=== PATIENT | male | born 1965 | race Caucasian/White ===

== ENCOUNTER 2022-04-24 11:16 | Inpatient (IN) ==
--- NOTE | 2022-04-20 13:38 | Anesthesiology Consultation ---
Date of Service April 20, 2022 Assessment & Plan (1) Encounter for pre-operative examination: COVID screening: Per assessment on 04/20: No known COVID-19 positive contacts or current COVID-19 related symptoms. Travel screen negative. At surgeon discretion if preop Covid testing being done. Chart Review Chart Review: Acceptable Risk for Surgery and Patient seen in Pre Admission Testing Teaching & Discussion Pre-Anesthesia Teaching/Discussion Notes: Instructed NPO after midnight before surgery,except medications with 15 cc of water. Medication instructions provided according to the PAT guidelines. History Surgery Operation Date: 04/24/22 12:25 Proposed Procedures p L3-S1 Decompression Fusion, Spinal Cord Monitoring - Teddy Catalan, Height/Weight Height: 5 ft 8 in Weight: 99.79 kg Allergies Allergy/AdvReac Type Severity Reaction Status Date / Time No Known Allergies Allergy Verified 04/20/22 08:32 Medications Home Medications Medication Instructions Recorded Confirmed Last Taken atorvastatin 20 mg tablet (Lipitor) 20 mg PO HS 04/20/22 04/20/22 Unknown glucosamine-chondroitin 250 mg-200 2 tab PO TID 04/20/22 04/20/22 Unknown mg tablet (Osteo Bi-Flex) ibuprofen 800 mg tablet 800 mg PO TID PRN Pain 04/20/22 04/20/22 Unknown irbesartan 150 1 tab PO QAM 04/20/22 04/20/22 Unknown mg-hydrochlorothiazide 12.5 mg tablet iron 40 mg capsule 40 mg PO BID 04/20/22 04/20/22 Unknown multivitamin 1 tab PO QAM 04/20/22 04/20/22 Unknown omega-3 fatty acids 1,000 mg PO QAM 04/20/22 04/20/22 Unknown Past Medical History Medical History History of COVID-19 08/2019, loss of taste/smell, fatigue > resolved Hyperlipidemia Hypertension Past Family History Family History Other No family history of adverse response to anesthesia Past Surgical History Surgical History Hx of bilateral inguinal hernia repair Hx of colonoscopy Hx of umbilical hernia repair Social History Smoking Status: Former smoker tobacco type: cigarettes Do You Dip or Chew Tobacco: No Smoking End Date: QUIT >25 YRS Hx Alcohol Use: Yes Alcohol type: beer alcohol intake frequency: 3 or more drinks per day Hx Substance Use: No substance use type: does not use Review of Systems Patient denies chest pain, shortness of breath, dyspnea on exertion, fever, chills, cough, wheezing, palpitations. Physical Exam Vital Signs VITALS BP P TEMP SP02 RESP PHYSICAL Full cervical extension range of motion. Full TMJ range of motion. TMD __ finger breaths Mallampati Score ___ Dentition: intact Lungs: clear throughout to auscultation Cardiac: regular rate and rhythm, no murmurs noted Spine: normal Carotid arteries: negative bruit Extremities: no edema Testing Laboratory Results 04/14/22 WBC 8.4 H/H 14.1/43.7 PLATELETS 238 SODIUM 138 POTASSIUM 4.5 CHLORIDE 105 CO2 26.0 BUN 25 CREATININE 0.9 GLUCOSE 105 PT 10.7 PTT 29.4 INR 0.9 UA + blood/ketones, negative nitrite/leuk est/+ bact (no growth on culture) Electrocardiogram Date: 04/14/22 SR at 82bpm. Consider LAE. PRWP. Cannot r/o old anterior infarct. Chest X-Ray Date: 04/14/22 Findings: + NAD
[~2022-04-24 11:16] MED LIST: ACETAMINOPHEN 500 MG TAB PO SCH; CeleBREX 200 MG CAP PO SCH; GABAPENTIN 600 MG DOSE PO SCH; HYDROmorphone INJ 2 MG/ML SYR/VIAL ONE; LR 15ML/HR IV SCH; MIDAZOLAM HCL 1 MG/ML 2ML VIAL ONE; ceFAZolin 2000MG 2,000 MG/15 ML SYR IV SCH
[2022-04-24] MEDS ORDERED: GLYCOPYRROLATE 0.2 MG/ML VIAL ONE (11:18)
[2022-04-24] MEDS ORDERED: ONDANSETRON INJ 2 MG/ML 2 ML VIAL ONE (11:18)
[2022-04-24] MEDS ORDERED: DEXAMETHASONE SOD INJ 4 MG/ML VIAL ONE (11:18)
[2022-04-24] MEDS ORDERED: PROPOFOL IV EMULSION 10 MG/ML 20 ML VIAL IV ONE (11:18)
[2022-04-24] MEDS ORDERED: LIDOCAINE 2% MPF LOCAL 5 ML VIAL INFIL ONE (11:18)
[2022-04-24] MEDS ORDERED: ROCURONIUM BROMIDE 10 MG/ML 5 ML VIAL IV ONE ×2 (11:18→13:17)
--- NOTE | 2022-04-24 11:45 | History & Physical Bridge Note ---
Date of Service April 24, 2022 History & Physical Bridge Note I have examined the patient, reviewed the History & Physical and in the interval since the performance of the History & Physical I have noted the following changes of clinical significance: no changes noted
--- NOTE | 2022-04-24 11:46 | History & Physical Report ---
Date of Service April 24, 2022 Assessment & Plan (1) Neurogenic claudication due to lumbar spinal stenosis: History of Present Illness Chief Complaint: Back and bilateral leg pain Primary Care Provider: NO PCP This is a 57-year-old male who presents with chronic persistent back and bilateral leg pain. Failing extensive course of nonoperative care is here for surgical invention. Allergies Allergy/AdvReac Type Severity Reaction Status Date / Time No Known Allergies Allergy Verified 04/24/22 11:33 Home Medications Medication Instructions Recorded Confirmed Type atorvastatin 20 mg tablet (Lipitor) 20 mg PO HS 04/20/22 04/24/22 History glucosamine-chondroitin 250 mg-200 2 tab PO TID 04/20/22 04/24/22 History mg tablet (Osteo Bi-Flex) ibuprofen 800 mg tablet 800 mg PO TID PRN Pain 04/20/22 04/24/22 History irbesartan 150 1 tab PO QAM 04/20/22 04/24/22 History mg-hydrochlorothiazide 12.5 mg tablet iron 40 mg capsule 40 mg PO BID 04/20/22 04/24/22 History multivitamin 1 tab PO QAM 04/20/22 04/24/22 History omega-3 fatty acids 1,000 mg PO QAM 04/20/22 04/24/22 History Past Med/Surg History Medical History History of COVID-19 08/2019, loss of taste/smell, fatigue > resolved Hyperlipidemia Hypertension Surgical History Hx of bilateral inguinal hernia repair Hx of colonoscopy Hx of umbilical hernia repair Family History Other No family history of adverse response to anesthesia Social History Smoking Status: Former smoker Smoking End Date: QUIT >25 YRS; Second Hand Exposure: No; Do You Dip or Chew Tobacco: No; Tobacco Cessation Education Requested by Patient: No Hx Alcohol Use: Yes Alcohol type: beer Hx Substance Use: No Preferred Language: Nepali Communication Ability: Effective Payroll Administrative Assistant Required: No Beliefs That Will Affect Care: None Current Living Situation: Spouse Other Information That Helps Us Care for You: No Feels Safe at Home: Yes Safety Concerns: Feels Safe At This Time Assistive Devices: Glasses Physical Exam Physical Exam: Patient is alert and oriented Heart regular rhythm Lungs clear
[2022-04-24] MEDS ORDERED: SUGAMMADEX SODIUM 200 MG/2 ML VIAL IV ONE (11:54)
[2022-04-24] MEDS ORDERED: ceFAZolin 330 MG/ML 1 GM VIAL ONE (12:04)
[2022-04-24] MEDS ORDERED: BUPIVACAINE/EPINEPHRINE 0.25% 1:200,000 30 ML VIAL ONE (12:04)
[2022-04-24] MEDS ORDERED: ONDANSETRON INJ 2 MG/ML 2 ML VIAL IV PRN ×2 (12:29→16:39)
[2022-04-24] MEDS ORDERED: PROMETHAZINE HCL 12.5 MG in SODIUM CHLORIDE 0.9% 50 ML IV PRN ×2 (12:29→16:39)
[2022-04-24] MEDS ORDERED: HYDROmorphone INJ 1 MG/ML SYRINGE IV PRN ×2 (12:29→16:39)
[2022-04-24] MEDS ORDERED: LABETALOL HCL IV 5 MG/ML 20ML IV PRN (12:29)
[2022-04-24] MEDS ORDERED: ATROPINE SULFATE 0.1 MG/ML 10ML SYR IV PRN (12:29)
[2022-04-24] MEDS ORDERED: ePHEDrine sulfate 50 MG/ML AMP IV PRN (12:29)
[2022-04-24] MEDS ORDERED: SUCCINYLCHOLINE CHLORIDE 20 MG/ML 10 ML VIAL IV ONE (12:38)
[2022-04-24] MEDS ORDERED: FLOSEAL HEMOSTATIC MATRIX 10ML TOP ONE (13:12)
[2022-04-24] MEDS ORDERED: PHENYLEPHRINE 100MCG/ML 5ML SYR ONE (13:34)
--- NOTE | 2022-04-24 15:02 | Operative Report ---
Post Operative Report Pre & Post Diagnosis Operation Date: 04/24/22 12:45 Pre-Op Diagnosis: Neurogenic Claudication due to Lumbar Spinal Stenosis L3-S1 Post-Op Diagnosis: Neurogenic Claudication due to Lumbar Spinal Stenosis L3-S1 I identified the patient and participated in the time-out.: Yes Procedure Operation Date: 04/24/22 12:45 Actual Procedures #1 lumbar decompression bilateral medial facetectomies and foraminotomies L1-L3, L3-L4, L4-L5 and L5-S1. #2 posterior spinal fusion L3-S1. #3 placement p osterior segmental instrumentation L3-S1. #4 interbody fusion L3-L4, L4-5 and L5-S1. #5 placement of Spira 13 x 26 mm at L3-L4, 15 x 26 mm L4-5 and 15 x 26 mm of L5-S1. #6 placement locally harvested morselized autograft in the posterior gutters. #7 placement of I factor model V toss in interbody space and posterior lateral gutters. Surgeon Teddy Catalan, DO Bit Gatherer Cassidy Pavon Estimated Blood Loss 350 Findings See Below The patient is 5 foot 8 inches tall weighing over 97 kg with a BMI in excess of 32. Patient's body habitus did contribute to significant technical difficulty required deepest retractors longer instruments in order to perform his procedure. This at least 50% increased operative time. Specimens None Indications This is a 57-year-old male who presents to the emergency diagnosis after failing course of nonoperative care is here for surgical invention. Description of Procedure Patient was met with identified informed consent obtained. Patient was then taken to the operative suite underwent ablation placed in a prone position on the Sanjeev table atop the Caden frame. All bony prominences well-padded eyes inspected to ensure no external pressure placed upon them. This point lumbar spine was prepped and draped in a sterile fashion. Sharp dissection with the assistance of Bovie cautery was formed down to and exposing the lamina transverse processes of L3-L4-L5 and sacral ala bilaterally. From a caudal cephalad fashion complete laminectomy of L5 L4 L3 impression laminectomy of L2 was performed including bilateral medial facetectomies and foraminotomies addressing severe spinal stenosis. Pedicle screws then placed in L3-L4-L5 and S1 levels bilaterally with assistance of fluoroscopy the proper sized marysol placed. By way of a transforaminal approach on the right complete discectomy of L5-S1 was performed endplates curetted to subcortically bone and a 15 x 26 mm spiral cage with I factor tapped in position. Then proceeded L4-L5 and again by way the transforaminal portion right complete discectomy performed endplates curetted to subcortical bleeding bone and again a 15 x 26 mm spiral cage with I factor tapped in position. Lastly proceeded L3-L4 and by way of a transfemoral approach and right complete discectomy performed endplates curetted to subcortically bone and a 13 x 26 mm spiral cage filled with I factor tapped in position. The rods then locked into final position bilaterally. The transverse processes of L3 L4-5 and sacral ala burred to subcortical bleeding bone. I factor combined with V toss and locally harvested morselized autograft was placed in the posterior gutters. 15 round MECCA drain inserted. The incision was then closed with 1 Vicryl in the fascia 2-0 Vicryl subcutaneously and 4 Monocryl for final skin closure. Steri-Strip sterile dressing placed. Patient waken taken to PACU in stable condition. Please note spinal cord monitoring was utilized at the procedure no changes noted. Lastly Cassidy Pavon was present at the entire surgery and while the patient positioning complex portions of the surgery and final skin closure. I attest to the content of the Intraoperative Record and any orders documented therein. Any exceptions are noted below.
--- NOTE | 2022-04-24 15:11 | Fluoroscopy Report ---
FL lumbar spine 2-3V CLINICAL HISTORY: L3-S1 DECOMPRESSION AND FUSION COMPARISON STUDY: None. FLUOROSCOPY TIME: 37 seconds. FLUOROSCOPIC IMAGES: 3 FINDINGS: Fluoroscopy was provided during L3-L4, L4-L5 and L5-S1 discectomies with interbody spacer p lacement. Posterior decompression is noted. There are bilateral pedicle screws at the L3, L4, L5 and S1 levels with interconnecting rods. Hardware is intact. There are no unexpected radiopaque foreign b odies. IMPRESSION: Fluoroscopy provided during L3-S1 decompression and fusion, as above. ACT 112: Negative or not required by law. Electronically signed by: Daniel Thomas M.D. 04/24/2022 3:09 PM
[2022-04-24] MEDS: fentaNYL citrate 100 MCG/2 ML VIAL IV PRN ×4 (15:24→15:39)
--- NOTE | 2022-04-24 16:06 | Anesthesiology Progress Note ---
Date of Service April 24, 2022 Anesthesia Post Procedure Vital Signs Vital Signs: Temp Pulse Pulse Resp BP BP Pulse Ox 04/24/22 16:00 102 H 13 116/66 99 04/24/22 15:30 102 H 12 140/90 100 04/24/22 15:50 106 H 19 117/73 100 04/24/22 15:40 109 H 28 H 120/90 100 04/24/22 15:20 101 H 18 132/87 100 04/24/22 15:13 36.4 C L 95 H 13 115/91 100 04/24/22 11:38 36.7 C 96 H 16 144/105 H 97 O2 Del Method O2 Flow Rate 04/24/22 16:00 Nasal Cannula 3 04/24/22 15:30 Oxymask 10 04/24/22 15:50 Nasal Cannula 3 04/24/22 15:40 Nasal Cannula 3 04/24/22 15:20 Oxymask 10 04/24/22 15:13 Oxymask 10 04/24/22 11:38 Room Air Pain Intensity Right Leg: Pain Intensity: 5 Back: Pain Intensity: 6 Transfer of Care Handoff Completed per policy Notes Mental Status: alert / awake / arousable Patient Amnestic to Procedure: Yes Nausea / Vomiting: adequately controlled Pain: adequately controlled Airway Patency, RR, SpO2: stable & adequate BP & HR: stable & adequate Hydration State: stable & adequate Anesthetic Complications: no major complications apparent
[2022-04-24] MEDS ORDERED: hydrOXYzine HCl 25 MG TAB PO PRN (16:39)
[2022-04-24] MEDS ORDERED: SOD PHOSPHATE/SOD BIPHOSPHATE ENEMA 132 ML BTL PR PRN (16:39)
[2022-04-24] MEDS ORDERED: METOCLOPRAMIDE HCL INJ 5 MG/ML 2 ML VIAL IV PRN (16:39)
[2022-04-24] MEDS ORDERED: MAGNESIUM HYDROXIDE SUSP 30 ML UDC PO PRN (16:39)
[2022-04-24] MEDS ORDERED: LORazepam 0.5 MG in SYRINGE 0 ML IV PRN (16:39)
[2022-04-24] MEDS ORDERED: ACETAMINOPHEN 500 MG TAB PO PRN (16:39)
[2022-04-24] MEDS ORDERED: ALUMINUM/MAGNESIUM SUSP 30 ML UDC PO PRN (16:39)
[2022-04-24] MEDS ORDERED: traMADol HCL 50 MG TABLET PO PRN (16:39)
[2022-04-24] MEDS ORDERED: HYDROmorphone INJ 0.5 MG/0.5 ML SYR IV PRN (16:39)
[2022-04-24] MEDS ORDERED: bisacodyL 10 MG SUPP PR PRN (16:39)
[2022-04-24] MEDS ORDERED: ONDANSETRON 4 MG OD TAB PO PRN (16:39)
[2022-04-24] MEDS ORDERED: ACETAMINOPHEN 1,000 MG/100 ML VIAL IV PRN (16:39)
[2022-04-24] MEDS ORDERED: FAMOTIDINE 20 MG TAB PO PRN (16:39)
[2022-04-24] MEDS ORDERED: diphenhydrAMINE Capsule 25 MG CAP PO PRN (16:39)
[2022-04-24] MEDS ORDERED: NALOXONE HCL 0.4 MG/1 ML VIAL/CARP IV PRN (16:39)
[2022-04-24] MEDS: LACTATED RINGER'S 1,000 ML IV SCH ×2 (16:51→23:29)
--- NOTE | 2022-04-24 17:19 | Hospitalist Consultation ---
Date of Consultation April 24, 2022 Assessment & Plan (1) Neurogenic claudication due to lumbar spinal stenosis: Raudel is a 57-year-old male with a past medical history of neurogenic claudication due to lumbar stenosis, hypertension, hyperlipidemia who presented for scheduled lumbar decompression and surgical intervention of spinal stenosis on 04/24/2022. We are consulted for postop medication management. Lumbar stenosis 04/24/2022 s/p #1 lumbar decompression bilateral medial facetectomies and foraminotomies L1-L3, L3-L4, L4-L5 and L5-S1. #2 posterior spinal fusion L3- S1. #3 placement posterior segmental instrumentation L3-S1. #4 interbody fusion L3-L4, L4-5 and L5-S1. #5 placement of Spira 13 x 26 mm at L3-L4, 15 x 26 mm L4-5 and 15 x 26 mm of L5-S1. #6 placement locally harvested morselized autograft in the posterior gutters. #7 placement of I factor model V toss in interbody space and posterior lateral gutters. - DVT prophylaxis, pain control, ambulation recommendations per primary team Mild tachycardia 350 cc of blood loss. Additional 500 cc supplemental fluid given postoperatively. Burning in His Right Thigh Positionally, No Radiating Symptoms down to the Foot. Sensation of Soft Touch Is Intact in Feet, Heel, Smith, and Thigh Bilaterally to Soft Touch without Asymmetry. Ankle Dorsiflexion/Plantarflexion Is Intact Bilaterally with 5/5 Strength. Cap Refill in the Hallux Is Brisk Bilaterally. Hypertension Hold irbesartan/hydrochlorothiazide day of procedure. May resume 04/25 if blood pressure normal or hypertensive and creatinine normal. If BP low or creatinine is elevated hold and then resume 04/26 Normotensive postoperatively BMP in a.m. Hyperlipidemia Continue atorvastatin 20 mg p.o. nightly Postoperative hypoxia On 2 L, suspect postoperative atelectasis Incentive spirometry, wean to SPO2 goal of greater than 90% COVID-negative History of Present Illness Attending Physician: Teddy Catalan, History of Present Illness Raudel is a 57-year-old male who presented for lumbar decompression due to neurogenic claudication from spinal stenosis. We are consulted for medical management. He is doing well postoperatively, with some thigh pain and burning increased preoperatively but no symptoms radiating down into his lower legs or heels. He denies fever, chills, sweats, lightheadedness, dizziness. Reports that he was resting comfortably, and would like to get some sleep but otherwise feels okay with no concerns other than his right thigh pain. Denies chest pain, chest pressure, lightheadedness, dizziness. Postoperatively blood pressure was slightly low, has improved with fluids supportive care. MECCA drain is in place draining sanguinous to serosanguineous fluid, drain is with greater than 150 cc at time of visit. Medical History: Reviewed Medications: Reviewed Surgical History: Reviewed Allergies: Reviewed Social History: Reviewed Code Status: Full code Allergies Allergy/AdvReac Type Severity Reaction Status Date / Time No Known Allergies Allergy Verified 04/24/22 11:33 Home Medications Medication Instructions Recorded Confirmed Type atorvastatin 20 mg tablet (Lipitor) 20 mg PO HS 04/20/22 04/24/22 History glucosamine-chondroitin 250 mg-200 2 tab PO TID 04/20/22 04/24/22 History mg tablet (Osteo Bi-Flex) ibuprofen 800 mg tablet 800 mg PO TID PRN Pain 04/20/22 04/24/22 History irbesartan 150 1 tab PO QAM 04/20/22 04/24/22 History mg-hydrochlorothiazide 12.5 mg tablet iron 40 mg capsule 40 mg PO BID 04/20/22 04/24/22 History multivitamin 1 tab PO QAM 04/20/22 04/24/22 History omega-3 fatty acids 1,000 mg PO QAM 04/20/22 04/24/22 History oxycodone 5 mg tablet 5 mg PO Q6H PRN pain, severe #30 04/25/22 Rx tabs tramadol 50 mg tablet 50 mg PO Q6H PRN pain, moderate 04/25/22 Rx #30 tabs Patient History Medical History History of COVID-19 08/2019, loss of taste/smell, fatigue > resolved Hyperlipidemia Hypertension Surgical History Hx of bilateral inguinal hernia repair Hx of colonoscopy Hx of umbilical hernia repair Family History Other No family history of adverse response to anesthesia Social History Smoking Status: Former smoker Smoking End Date: QUIT >25 YRS; Second Hand Exposure: No; Do You Dip or Chew Tobacco: No; Tobacco Cessation Education Requested by Patient: No Hx Alcohol Use: Yes Alcohol type: beer Hx Substance Use: No Preferred Language: Senegalese Communication Ability: Effective Transmission And Coordination Engineer Required: No Beliefs That Will Affect Care: None Current Living Situation: Spouse Other Information That Helps Us Care for You: No Feels Safe at Home: Yes Safety Concerns: Feels Safe At This Time Assistive Devices: Glasses Review of Systems Review of Systems: All systems reviewed & are unremarkable except as noted in Subjective Physical Exam Physical Exam: General: A&Ox3. NAD. Cooperative. HEENT: Atraumatic, normocephalic. Vision and hearing grossly intact Pulm: CTAB A&P. -wheezes, -rales, -rhonchi. Symmetrical chest rise. No increase in work of breathing. No respiratory distress. Cardiac: RRR, -mrg. Radial pulses intact and symmetrical. Abdominal: Nontender, nondistended, soft. BS present. Extremities: Endorses burning in His Right Thigh Positionally, No Radiating Symptoms down to the Foot. Sensation of Soft Touch Is Intact in Feet, Heel, Smith, and Thigh Bilaterally to Soft Touch without Asymmetry. Ankle Dorsiflexion/Plantarflexion Is Intact Bilaterally with 5/5 Strength. Cap Refill in the Hallux Is Brisk Bilaterally. Back: MECCA drain in place draining approximately 150 cc of sanguinous to serosanguineous material. No purulence. Results & Data Results & Data ([facility]) Vital Signs (Past 12 Hours) Vital Signs Temp Pulse Pulse Resp BP BP Pulse Ox 04/24/22 16:45 04/24/22 16:45 37.3 C 106 H 18 121/83 100 04/24/22 16:25 104 H 13 104/66 99 04/24/22 16:10 36.6 C 105 H 14 120/71 100 04/24/22 16:00 102 H 13 116/66 99 04/24/22 15:30 102 H 12 140/90 100 04/24/22 15:50 106 H 19 117/73 100 04/24/22 15:40 109 H 28 H 120/90 100 04/24/22 15:20 101 H 18 132/87 100 04/24/22 15:13 36.4 C L 95 H 13 115/91 100 04/24/22 11:38 36.7 C 96 H 16 144/105 H 97 O2 Del Method O2 Flow Rate 04/24/22 16:45 Nasal Cannula 2 04/24/22 16:45 Nasal Cannula 2 04/24/22 16:25 Nasal Cannula 2 04/24/22 16:10 Nasal Cannula 3 04/24/22 16:00 Nasal Cannula 3 04/24/22 15:30 Oxymask 10 04/24/22 15:50 Nasal Cannula 3 04/24/22 15:40 Nasal Cannula 3 04/24/22 15:20 Oxymask 10 04/24/22 15:13 Oxymask 10 04/24/22 11:38 Room Air PG Care Time/CCT Total # of Minutes Spent Total Time Spent with Patient: Total time spent is greater than 50% in coordination of care (as documented) at patient's floor/unit and/or counseling patient: Coding Level of Care Code 10355 Inpt Consult Level 4 Diagnoses Neurogenic claudication due to lumbar spinal stenosis M48.062
[2022-04-24] MEDS: ceFAZolin 2000MG 2,000 MG/15 ML SYR IV SCH (20:27)
[2022-04-24] MEDS: ATORVASTATIN 20 MG TAB PO SCH (20:28)
[2022-04-24] MEDS: FERROUS GLUCONATE 324 MG TAB PO SCH (20:28)
[2022-04-24] MEDS: DOCUSATE SODIUM/SENNA 50/8.6MG TAB PO SCH (20:28)
[2022-04-24] MEDS: oxyCODONE HCL IR 5 MG TAB (IMMEDIATE RELEASE) PO PRN (22:19)
[2022-04-25] MEDS: LACTATED RINGER'S 1,000 ML IV SCH (01:45)
[2022-04-25] MEDS: POLYETHYLENE (MIRALAX) 17 GM PACK PO SCH ×4 (05:39→21:10)
[2022-04-25] MEDS: ceFAZolin 2000MG 2,000 MG/15 ML SYR IV SCH (05:39)
[2022-04-25] MEDS: oxyCODONE HCL IR 5 MG TAB (IMMEDIATE RELEASE) PO PRN ×4 (05:42→21:07)
[2022-04-25] MEDS: hydroCHLOROthiazide 25 MG TAB PO SCH (08:31)
[2022-04-25] MEDS: FERROUS GLUCONATE 324 MG TAB PO SCH ×2 (08:31→21:06)
[2022-04-25] MEDS: LORazepam 0.5 MG TAB PO PRN (08:31)
[2022-04-25] MEDS: IRBESARTAN 150 MG TAB PO SCH (08:31)
[2022-04-25] MEDS: MULTIVITAMIN TAB PO SCH (08:31)
[2022-04-25] MEDS: dexAMETHasone 6 MG in SYRINGE 0 ML IV SCH (08:32)
[2022-04-25] MEDS: GABAPENTIN 300 MG CAP PO SCH ×3 (08:35→21:06)
[2022-04-25] MEDS ORDERED: NON-FORMULARY MEDICATION (Irbesartan-Hydrochlorothiazide 150-12.5 mg Tablet) PO SCH (09:00)
[2022-04-25 09:17] LABS: Basophils # (auto) 0.02 K/uL (0-0.2); Basophils % (auto) 0.1 %; Eosinophils # (auto) 0.01 K/uL (0-0.50); Eosinophils % (auto) 0.1 %; Hematocrit (blood only) 34.8 % (40.1-51.0); Hemoglobin 11.6 g/dl (14.0-18.0); Immature Granulocytes % (auto) 0.6 %; Lymphocytes # (auto) 1.19 K/uL (1.2-3.4); Lymphocytes % (auto) 6.6 %; Mean Corpuscular Hemoglobin 30.9 pg (25.0-34.0); Mean Corpuscular Hgb Conc 33.3 g/dL (32.0-36.0); Mean Corpuscular Volume 92.8 fL (80.0-100.0); Monocytes # (auto) 1.53 K/uL (0.24-0.82); Monocytes % (auto) 8.5 %; Neutrophils # (auto) 15.06 K/uL (1.4-6.5); Neutrophils % (auto) 84.1 %; Platelet Count 257 K/uL (130-400); RDW Coefficient of Variation 12.7 % (11.5-14.5); RDW Standard Deviation 43.4 fL (36.4-46.3); Red Blood Count 3.75 M/uL (4.63-6.08); White Blood Count 17.91 K/ul (4.8-10.8)
--- NOTE | 2022-04-25 09:41 | Orthopedic Progress Note ---
Date of Service April 25, 2022 Assessment & Plan (1) Neurogenic claudication due to lumbar spinal stenosis: Plan: At this time continue physical therapy monitor his MECCA output anticipate discharge home most likely a.m. I have again Neurontin to help with the nerve pain. Admission and Anticipated Discharge Date Admission Date: April 24, 2022 Subjective Back pain is controlled leg pain is improved he is however struggling with some right anterior thigh burning. Physical Exam Physical Exam: Patient seen by the bedside. Is good strength testing. Appears comfortable. Results & Data ([facility]) Vital Signs (Past 12 Hours) Vital Signs Temp Pulse Resp BP Pulse Ox O2 Del Method 04/25/22 07:11 36.8 C 95 H 22 142/84 H 97 Room Air 04/25/22 04:00 36.8 C 98 H 20 156/97 H 99 Room Air 04/24/22 23:09 36.9 C 102 H 18 122/73 99 Room Air
[2022-04-25 09:43] LABS: BUN Creatinine Ratio 15.4 (10-20); Calcium 8.4 mg/dl (8.5-10.1); Creatinine Clr Calc Pharmacy 102.7 ml/min; Est GFR (African American) 108.8 ml/min; Est GFR (Non-African American) 93.9 ml/min; Potassium 3.9 mmol/L (3.5-5.1)
[2022-04-25] MEDS ORDERED: ALBUTEROL HFA 8 GM INHALER INH PRN (10:26)
--- NOTE | 2022-04-25 16:51 | Hospitalist Progress Note ---
Date of Service April 25, 2022 Assessment & Plan (1) Neurogenic claudication due to lumbar spinal stenosis: Plan: Raudel is a 57-year-old male with a past medical history of neurogenic claudication due to lumbar stenosis, hypertension, hyperlipidemia who presented for scheduled lumbar decompression and surgical intervention of spinal stenosis on 04/24/2022. We are consulted for postop medication management. Doing very well post-op. Weaned off O2, ambulating, eating and drinking, passing flatus but no BM, voiding on own. Pain controlled. Lumbar stenosis 04/24/2022 s/p #1 lumbar decompression bilateral medial facetectomies and foraminotomies L1-L3, L3-L4, L4-L5 and L5-S1. #2 posterior spinal fusion L3- S1. #3 placement posterior segmental instrumentation L3-S1. #4 interbody fusion L3-L4, L4-5 and L5-S1. #5 placement of Spira 13 x 26 mm at L3-L4, 15 x 26 mm L4-5 and 15 x 26 mm of L5-S1. #6 placement locally harvested morselized autograft in the posterior gutters. #7 placement of I factor model V toss in interbody space and posterior lateral gutters. - DVT prophylaxis, pain control, ambulation recommendations per primary team -Hgb only slight drop, vitals acceptable and BMP normal Postoperative hypoxia now resolved continue ICS (2) Hypertension: Plan: BPs stable -continue irbesartan/hydrochlorothiazide renal function normal (3) Hyperlipidemia: Plan: Continue atorvastatin 20 mg p.o. nightly Plan Dispo-doing well post-op No acute medical issues Hospitalist service will sign off at this time. Please feel free to reconsult if new or acute issues arise. Admission and Anticipated Discharge Date Admission Date: April 24, 2022 Subjective Pt doing well. Eating, no nausea, passing flatus but no BM yet. Pain controlled. No CP, SOB, lightheadedness. Has some burning sensation in right thigh but pain down RLE to calf is completely resolved. Review of Systems Review of Systems: All systems reviewed & are unremarkable except as noted in HPI & below Physical Exam Constitutional: WD/WN, vitals as above Neck: trachea midline, no thyromegaly Respiratory: normal respiratory effort, lungs clear to auscultation Cardiovascular: RRR, no murmur, no edema Chest (Breasts): Chest: normal inspection of chest Gastrointestinal (Abdomen): normal bowel sounds, soft, nontender, no hepatosplenomegaly Musculoskeletal: Extremities: extremities normal to inspection; no cyanosis and no clubbing Skin: no rashes, warm and dry Neurologic: moves all extremities and awake; no focal motor deficits Psychiatric: A+Ox3, euthymic affect Lymphatic: no lymphedema Results & Data Results & Data ([facility]) Vital Signs (Past 12 Hours) Vital Signs Temp Pulse Resp BP Pulse Ox O2 Del Method 04/25/22 15:31 36.6 C 83 17 106/64 98 Room Air 04/25/22 11:10 36.6 C 97 H 16 109/67 97 Room Air 04/25/22 07:11 36.8 C 95 H 22 142/84 H 97 Room Air Laboratory Results 04/25/22 08:45 04/25/22 08:45 PG Care Time/CCT Total # of Minutes Spent Total Time Spent with Patient: Total time spent is greater than 50% in coordination of care (as documented) at patient's floor/unit and/or counseling patient: Coding Level of Care Code 26393 Subseq Hosp Care Lvl 1 Diagnoses Neurogenic claudication due to lumbar spinal stenosis M48.062 Hypertension I10 Hyperlipidemia E78.5
[2022-04-25] MEDS: ATORVASTATIN 20 MG TAB PO SCH (21:06)
[2022-04-25] MEDS: DOCUSATE SODIUM/SENNA 50/8.6MG TAB PO SCH (21:06)
[2022-04-26] MEDS: oxyCODONE HCL IR 5 MG TAB (IMMEDIATE RELEASE) PO PRN ×4 (00:57→23:29)
[2022-04-26] MEDS: LORazepam 0.5 MG TAB PO PRN ×2 (00:58→23:29)
[2022-04-26] MEDS: POLYETHYLENE (MIRALAX) 17 GM PACK PO SCH ×3 (06:43→18:23)
--- NOTE | 2022-04-26 08:59 | Orthopedic Progress Note ---
Date of Service April 26, 2022 Assessment & Plan (1) Neurogenic claudication due to lumbar spinal stenosis: Plan: Raudel is postoperative day 2 status post L3-S1 decompression fusion. We will continue physical therapy today. Continue with pain control. DVT prophylaxis is in the form of teds and SCDs. Maintain MECCA drain. Anticipate discharge home tomorrow. Admission and Anticipated Discharge Date Admission Date: April 24, 2022 Subjective Raudel is postoperative day 2 status post L3-S1 decompression fusion. He is doing well. Leg symptoms improved. He is passing flatus but no bowel movement yet. H&H are 11.6 and 34.8 respectively. MECCA drain output last shift was 55 cc. Yesterday in physical therapy ambulating 330 feet. Review of Systems Review of Systems: All systems reviewed & are unremarkable except as noted in HPI & below Physical Exam Physical Exam: He sitting up in bed in no acute distress Alert and oriented x3 Lumbar dressing is clean dry intact with functioning MECCA drain Calf soft nontender bilateral Strength intact bilateral lower extremities Results & Data ([facility]) Vital Signs (Past 12 Hours) Vital Signs Temp Pulse Resp BP BP Pulse Ox O2 Del Method 04/26/22 07:40 36.4 C L 94 H 16 127/79 98 Room Air 04/25/22 22:19 36.6 C 91 H 20 130/81 100 Room Air
[2022-04-26] MEDS: GABAPENTIN 300 MG CAP PO SCH ×3 (09:22→21:28)
[2022-04-26] MEDS: dexAMETHasone 6 MG in SYRINGE 0 ML IV SCH (09:22)
[2022-04-26] MEDS: hydroCHLOROthiazide 25 MG TAB PO SCH (09:22)
[2022-04-26] MEDS: FERROUS GLUCONATE 324 MG TAB PO SCH ×2 (09:23→21:29)
[2022-04-26] MEDS: IRBESARTAN 150 MG TAB PO SCH (09:23)
[2022-04-26] MEDS: MULTIVITAMIN TAB PO SCH (09:23)
[2022-04-26] MEDS: ATORVASTATIN 20 MG TAB PO SCH (21:29)
[2022-04-26] MEDS: DOCUSATE SODIUM/SENNA 50/8.6MG TAB PO SCH (21:29)
--- NOTE | 2022-04-27 08:17 | Discharge Summary ---
Date of Service April 27, 2022 Admission HPI Per Admitting Provider This is a 57-year-old male who presents with chronic persistent back and bilateral leg pain. Failing extensive course of nonoperative care is here for surgical invention. Principal Diagnosis Lumbar stenosis with neurogenic medication Discharge Data Allergies Allergy/AdvReac Type Severity Reaction Status Date / Time No Known Allergies Allergy Verified 04/24/22 11:33 Consultations 04/24/22 16:39 Consult Hospitalist Routine Procedures Performed Operation Date: 04/24/22 12:45 Actual Procedures p L3-S1 Decompression Fusion, Interbody Fusion L3-S1, with Application of Ifactor and Vitoss Bone Graft, with Spinal Cord Monitoring(Not Applicable) - Teddy Catalan DO Ordered Studies 04/24/22 12:45 [place] lumbar spine 2-3V Routine Hospital Course (1) Neurogenic claudication due to lumbar spinal stenosis: Patient went to medication patient tolerated this well was taken to the orthopedic floor postoperatively postop day 1 he was up and ambulating postop day 2 on postop day 3 pain was well controlled MECCA drain decreased appropriate production strength testing. Safely discharged home. Discharge orders instructions from the chart for further review. Total Time Total Time Spent Total Time Spent (In Minutes): 20 Discharge Plan Discharge Items Patient Disposition: Home - Self-Care Reason For Visit: Disc Disorders with Radiculopathy, Lumbar Region Discharge Diagnosis: Lumbar spinal stenosis with neurogenic claudication Activity: As commented below Non-emergency contact: Primary Care Provider Call non-emergency contact if: you have any medication questions Follow-up/Referrals: PCP,NO [Physician] - Diet: Regular Addtl Attending Provider Instructions: ACTIVITY RECOMMENDATIONS: SELF CARE INSTRUCTIONS AFTER THORACIC/LUMBAR FUSIONS 1. You may walk to your tolerance. It is good exercise for your legs and back. Expect some back and intermittent leg aches and pains. 2. You may perform "counter-top" level activities (make a sandwich, young with a project, etc.). 3. No bending or lifting of more than 10 pounds or back twisting of any nature (roll like a log when turning in bed). 4. You may ride in a car for 20-30 minutes at a time. No driving until after your first visit with your doctor. 5. Frequent changes of position and restricting sitting to 30 minutes at a time will help limit the amount of back spasms and stiffness you may experience. 6. You may discontinue the use of ambulatory aids (cane, crutches, etc.) once your strength and confidence allow. 7. 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 Do not take a tub bath, sit in a hot tub or go into a swimming pool until after your first recheck in the office. SPECIAL CARE INSTRUCTIONS: VERY IMPORTANT TO READ AND REVIEW A. Your surgical incision has been closed with a cosmetic suture under the skin that will dissolve in about 6 weeks. In 14 days, you can use a pair of clean scissors and cut the suture that is left outside of the skin at the ends of your incision. 1. The small skin tapes can be removed 7 days after surgery if they have not fallen off by that point. 2. You may keep the wound open to air as much as possible to promote healing after post-op day number 5 unless told otherwise by your doctor. 3. If you think the wound looks like it is becoming infected (redness or worsening drainage) and/or you are experiencing fever, chill or worsening back pain and muscle spasms, contact the office so that we may evaluate you as soon as possible. B. Complications are uncommon, but please contact us if you have any signs or symptoms of: 1. wound infection (fever higher than 102.5 degrees F, redness, separation of wound, drainage, or increasing pain from the incision) 2. blood clots in legs (pain, swelling, redness and warmth in legs) 3. urinary tract infection (fever higher than 102.5 degrees F, burning upon urination or increased frequency of urination) 4. nerve problems (inability to walk on your toes or heels, numbness, loss of bowel or bladder control) 5. any other symptoms that concern you C. Please call the office at if you have any concerns or questions about your operation or recovery. D. No smoking! Smoking drastically decreases the chance of a solid fusion. E. Do not take any anti-inflammatory medications (Indocin, Advil, Motrin, Aspirin, Naprosyn, etc.) as these may inhibit the chance of a solid fusion. Tylenol is okay to take for pain. MANAGING PAIN AFTER SPINAL SURGERY 1. Narcotic medication is intended for short-term use and will be provided for surgical pain. Surgical pain usually lasts for a period of 4-6 weeks. Narcotic medication includes Percocet, Vicodin, Darvocet, Tylenol #3 or Lortab. 2. Longer-term pain is more appropriately treated with non-narcotic medication such as Tylenol ES. 3. Muscle spasm is not appropriately treated with narcotics. Muscle relaxers such as Soma, Flexeril or Skelaxin can be used along with Tylenol ES. 4. Remember that we all live with some "aches and pains". This is not unusual or uncommon after an injury or as we get older. a. Back pain is expected and may include muscle spasms for 4 to 6 weeks after surgery. The pain should gradually improve. If the pain worsens for no apparent reason, please contact the office. b. Intermittent leg pain may also be experienced and should not be concerned about unless it worsens for no apparent reason. If so, please contact the office. 5. We will provide appropriate medication within the normal guidelines of their prescribed use. We will also be very cautious and aware of potential abuse and extended duration of patients' medication needs. a. Pain medications are for your comfort and to assist with sleep and rest so that the tissue can heal. They are not provided in order to return to normal activity and should not be used through the day. To do so or worsening pain at night can result from ongoing tissue damage and development of tolerance to the prescribed medicine. 6. Please allow 2-3 days to process refills. Prescriptions will not be mailed but must be picked up at the office. FOLLOW UP VISIT: Keep your scheduled follow-up appointment. Any questions, please call the office at . Pending Studies at Discharge: No Stand-Alone Forms: [facility], Smoking Cessation Medications and DC Order Prescriptions: New tramadol 50 mg tablet 50 mg PO Q6H PRN (Reason: pain, moderate) Qty: 30 0RF oxycodone 5 mg tablet 5 mg PO Q6H PRN (Reason: pain, severe) Qty: 30 0RF Continued multivitamin Tablet 1 tab PO QAM atorvastatin [Lipitor] 20 mg Tablet 20 mg PO HS irbesartan-hydrochlorothiazide 150-12.5 mg Tablet 1 tab PO QAM iron 40 mg Capsule 40 mg PO BID glucosamine-chondroitin [Osteo Bi-Flex] 250-200 mg Tablet 2 tab PO TID Rx Instructions: give after food/meal omega-3 fatty acids Capsule 1,000 mg PO QAM Discontinued ibuprofen 800 mg Tablet 800 mg PO TID PRN (Reason: Pain) Discharge Orders: Discharge Order (Routine); Ordered 04/27/22 Ordered By: Teddy Catalan Admission Data Admit Date/Time: 04/24/22 15:07 Attending Provider: Teddy Catalan Admit Provider: Teddy Catalan Primary Care Provider: Fili Hester Other Providers: Tristan Cabrera ; Brandy Lozoya
[2022-04-27] MEDS: hydroCHLOROthiazide 25 MG TAB PO SCH (09:24)
[2022-04-27] MEDS: IRBESARTAN 150 MG TAB PO SCH (09:24)
[2022-04-27] MEDS: dexAMETHasone 6 MG in SYRINGE 0 ML IV SCH (09:24)
[2022-04-27] MEDS: FERROUS GLUCONATE 324 MG TAB PO SCH (09:25)
[2022-04-27] MEDS: MULTIVITAMIN TAB PO SCH (09:25)
[2022-04-27] MEDS: GABAPENTIN 300 MG CAP PO SCH ×2 (09:25→13:28)
[2022-04-27] MEDS: oxyCODONE HCL IR 5 MG TAB (IMMEDIATE RELEASE) PO PRN (11:03)
== END 2022-04-27 14:02 | disposition home or self-care (01) | DRG 454 ==
LOC: ASU 11:16 → 3E 15:07